=== PATIENT | female | born 1935 | race Caucasian/White ===

== ENCOUNTER 2017-10-26 19:10 | Emergency (ER) | payer MEDICARE, MEDICAID ==
[~2017-10-26] VITALS: Ht 160 cm; Wt 75.0 kg
[~2017-10-26 19:10] MED LIST: MECL25 PO; Z.0.NO CURRENT MEDS
[2017-10-26 19:12] VITALS: BP 208/94; PULSE 108; RESP 18; TEMP 97.7; O2SAT 94
[2017-10-26] MEDS ORDERED: SYNT25TA PO (19:27)
[2017-10-26] MEDS ORDERED: LIOT25 PO (19:27)
[2017-10-26] MEDS ORDERED: ONDANSETRON HCL 4 MG/2 ML VIAL IV PUSH ONE (20:15)
[2017-10-26] MEDS ORDERED: MORPHINE SULFATE 2 MG/ML INJ IV PUSH ONE (20:15)
--- NOTE | 2017-10-26 20:35 | PD ---
HPI Chief Complaint: Injury Time Seen by Provider: 19:30 Travel History International Travel<30 days: No Contact w/Intl Traveler<30days: No Traveled to known affect area: No History of Present Illness HPI 82-year-old female here for evaluation of right wrist pain after mechanical trip and fall in our parking lot. The patient was apparently visiting a relative and was leaving the hospital when she fell backwards. She states she stretched her right arm out backwards, FOOSH injury. She denies any other injuries. No head injury or LOC. No neck or back pain. Pain in her right wrist is moderate, constant, worse with movements. No paresthesias. She is right-hand dominant. PFSH Past Medical History Diminished Hearing: No Immunizations Current: Yes Thyroid Disease: Yes (hypo) Tetanus Vaccination: Unknown Influenza Vaccination: Yes Menopausal: Yes Past Surgical History Hysterectomy: Yes Social History Alcohol Use: No Tobacco Use: No (QUIT 2006) Substance Use: No Allergies-Medications (Allergen,Severity, Reaction): Coded Allergies: penicillin G (Unverified Allergy, Mild, HIVES, 10/26/17) Reported Meds & Prescriptions Reported Meds & Active Scripts Active Hydrocodone-Acetaminophen 5-325 mg Tab 1 Tab PO Q6H PRN Reported Cytomel (Liothyronine Sodium) 25 Mcg Tab 25 Mcg PO DAILY Synthroid (Levothyroxine Sodium) 25 Mcg Tab 25 Mcg PO DAILY Review of Systems Except as stated in HPI: all other systems reviewed are Neg Physical Exam Narrative GENERAL: Well-developed, well-nourished, comfortable, no apparent distress. SKIN: Focused skin assessment warm/dry. HEAD: Atraumatic. Normocephalic. EYES: Pupils equal and round. No scleral icterus. No injection or drainage. ENT: Mucous membranes pink and moist. NECK: Trachea midline. No JVD. CARDIOVASCULAR: Regular rate and rhythm. Bilateral distal radial pulses are brisk and equal. Normal capillary refill in all fingers and right hand. RESPIRATORY: No accessory muscle use. Clear to auscultation. Breath sounds equal bilaterally. GASTROINTESTINAL: Abdomen soft, non-tender, nondistended. Hepatic and splenic margins not palpable. MUSCULOSKELETAL: Obvious deformity to the right distal radius with moderate edema and diffuse tenderness with limited range of motion in the right wrist. All compartments in the right upper extremity are supple. The rest of her joints and extremities are without deformity, without tenderness, with normal range of motion. NEUROLOGICAL: Awake and alert. No obvious cranial nerve deficits. Motor grossly within normal limits. Normal speech. Normal sensation in the right hand. PSYCHIATRIC: Appropriate mood and affect; insight and judgment normal. Data Data Last Documented VS Vital Signs Date Time Temp Pulse Resp B/P (MAP) Pulse Ox O2 Delivery O2 Flow Rate FiO2 10/26/17 19:12 97.7 108 18 208/94 (132) 94 Orders Orders Wrist, Complete ([id number]) (10/26/17 ) Forearm (2vws) (10/26/17 ) Morphine Inj (Morphine Inj) (10/26/17 20:15) Ondansetron Inj (Zofran Inj) (10/26/17 20:15) Lidocaine 2% Inj (Xylocaine 2% Inj) (10/26/17 21:15) Wrist, Limited (Ap&Lat) (10/26/17 ) MDM Medical Decision Making Medical Screen Exam Complete: Yes Emergency Medical Condition: Yes Differential Diagnosis Right wrist fracture versus sprain versus contusion versus dislocation Narrative Course Right wrist x-ray shows Colles' fracture with minimal displacement with volar tilt as well as mildly comminuted. Closed reduction of the right wrist fracture was attempted by me under a hematoma block. Postreduction x-rays ordered. Case discussed with on-call orthopedist Dr. Thibodeaux who would like the patient to follow-up with him in his office this week. Patient was placed in a sling and advised to remove her shoulder from the sling to range her shoulder every 2-3 hours to prevent a frozen shoulder. Both patient and the patient's family were made aware of all findings and plan. Procedures Procedure Narrative Hematoma block of right wrist fracture: Posterior right forearm was prepped with ChloraPrep, and 8 cc of 2% lidocaine was injected into the hematoma developed by the distal radius fracture. Patient experienced almost immediate relief of pain. Tolerated well. No complications. Closed reduction of right distal radius fracture: After hematoma block was performed, closed reduction was attempted by me in a sugar tong splint was placed. Dose reduction x-rays ordered. Diagnosis Primary Impression: Closed fracture of right distal radius Qualified Codes: S52.531A - Colles' fracture of right radius, initial encounter for closed fracture Referrals: Willie Thibodeaux Jr., MD 3 days Additional Instructions: Follow-up with orthopedist Dr. Thibodeaux or an orthopedist of your choice this week. Return to the emergency department for worsening symptoms or any other concerns. Scripts Hydrocodone-Acetaminophen (Hydrocodone-Acetaminophen) 5-325 mg Tab 1 TAB PO Q6H Y for PAIN, #20 TAB 0 Refills Prov: Juan Hernandez MD 10/26/17 Disposition: 01 DISCHARGE HOME Condition: Stable Juan Hernandez MD Oct 26, 2017 20:35
[2017-10-26] MEDS ORDERED: LIDOCAINE HCL 2% 50 ML VIAL NERV BLOCK ONE (21:15)
[2017-10-26] MEDS ORDERED: HYDR-3516 PO (21:40)
--- NOTE | 2017-10-26 21:47 | RADRPT ---
EXAM DATE/TIME: 10/26/2017 20:24 [facility] COMPARISON: No previous studies available for comparison. INDICATIONS : Patient fell in parking lot landing on right wrist. Complains of right wrist pain. MEDICAL HISTORY : None. SURGICAL HISTORY : None. ENCOUNTER: Initial ACUITY: 1 day PAIN SCORE: 8/10 LOCATION: Right Wrist FINDINGS: The examination demonstrates an impacted, dorsally angulated fracture of the distal radius. There is mild comminution. The remainder of the osseous structures are intact. CONCLUSION: 1. Impacted, dorsally angulated fracture of the distal radius. Moncho Lawler MD on October 26, 2017 at 21:44 Board Certified Radiologist. This report was verified electronically.
--- NOTE | 2017-10-26 21:48 | RADRPT ---
EXAM DATE/TIME: 10/26/2017 20:28 [facility] COMPARISON: WRIST RIGHT COMPLETE ([id number]), October 26, 2017, 20:24. INDICATIONS : Patient complains of right arm pain status post fall. MEDICAL HISTORY : None. SURGICAL HISTORY : None. ENCOUNTER: Initial ACUITY: 1 day PAIN SCORE: 7/10 LOCATION: Right Forearm FINDINGS: There is impacted, comminuted, dorsally angulated fracture of the distal radius. The remainder the vi sualized osseous structures of the forearm are intact. CONCLUSION: 1. Distal radial fracture as above. Moncho Lawler MD on October 26, 2017 at 21:45 Board Certified Radiologist. This report was verified electronically.
--- NOTE | 2017-10-26 22:01 | RADRPT ---
EXAM DATE/TIME: 10/26/2017 21:28 [facility] COMPARISON: FOREARM RIGHT (2VWS), October 26, 2017, 20:28. INDICATIONS : Post reduction. MEDICAL HISTORY : None. SURGICAL HISTORY : None. ENCOUNTER: Initial ACUITY: 1 day PAIN SCORE: 3/10 LOCATION: Right upper extremity wrist FINDINGS: Postreduction examination in plaster demonstrates significant interval improvement in the alignment o f the patient's distal radial fracture. CONCLUSION: 1. Significant interval improvement in the alignment of the patient's distal radial fracture. Moncho Lawler MD on October 26, 2017 at 21:59 Board Certified Radiologist. This report was verified electronically.
== END 2017-10-26 22:23 | disposition home or self-care (01) ==
LOC: NEPD 19:10
DX: S52.531A Colles' fracture of right radius, initial encounter for closed fracture (principal); W01.0XXA Fall on same level from slipping, tripping and stumbling without subsequent striking against object, initial encounter; Y92.481 Parking lot as the place of occurrence of the external cause; E03.9 Hypothyroidism, unspecified; Z87.891 Personal history of nicotine dependence
CPT/HCPCS: 25605; 73090; 73100; 73110; 96374; 96375; 99284; J2270; J2405

== ENCOUNTER 2017-10-28 12:39 | Emergency (ER) | payer MEDICARE, MEDICAID ==
[~2017-10-28 12:39] MED LIST changes: +HYDR-3516 PO; +LIOT25 PO; -MECL25 PO; +SYNT25TA PO; -Z.0.NO CURRENT MEDS
[2017-10-28 13:23] VITALS: BP 148/67; PULSE 85; RESP 18; TEMP 97.8; O2SAT 94
--- NOTE | 2017-10-28 15:24 | PD ---
HPI Chief Complaint: Medical Clearance Time Seen by Provider: 15:07 Travel History International Travel<30 days: No Contact w/Intl Traveler<30days: No Traveled to known affect area: No History of Present Illness HPI 82-year-old female with PMH of right wrist fracture presents to the ED for evaluation. Patient fell in our parking lot on October 26 and was evaluated and treated by Dr. Hernandez. Patient states that her hand is swollen and she feels as if her splint is too tight. She endorses numbness in the fifth digit of the right hand. She denies limitations to range of motion or loss of strength of the fingers. She is been taking hydrocodone at home. She saw a primary care provider today but has not followed with the orthopedist yet [facility] Past Medical History Diminished Hearing: No Immunizations Current: Yes Thyroid Disease: Yes (hypo) Menopausal: Yes Past Surgical History Hysterectomy: Yes Social History Alcohol Use: No Tobacco Use: No (QUIT 2006) Substance Use: No Allergies-Medications (Allergen,Severity, Reaction): Coded Allergies: penicillin G (Unverified Allergy, Mild, HIVES, 10/26/17) Reported Meds & Prescriptions Reported Meds & Active Scripts Active Ibuprofen 600 Mg Tab 600 Mg PO Q8H PRN Hydrocodone-Acetaminophen 5-325 mg Tab 1 Tab PO Q6H PRN Reported Cytomel (Liothyronine Sodium) 25 Mcg Tab 25 Mcg PO DAILY Synthroid (Levothyroxine Sodium) 25 Mcg Tab 25 Mcg PO DAILY Review of Systems Except as stated in HPI: all other systems reviewed are Neg Physical Exam Narrative GENERAL: Well-nourished, well-developed white female in no acute distress. SKIN: Focused skin assessment warm/dry. HEAD: Normocephalic. EYES: No scleral icterus. No injection or drainage. NECK: Supple, trachea midline. No JVD or lymphadenopathy. CARDIOVASCULAR: Regular rate and rhythm without murmurs, gallops, or rubs. RESPIRATORY: Breath sounds equal bilaterally. No accessory muscle use. GASTROINTESTINAL: Abdomen soft, non-tender, nondistended. MUSCULOSKELETAL: No cyanosis, or edema. FOCUSED RIGHT UPPER EXTREMITY EXAM: 2+ radial pulse. There is edema of the fingers of the right hand. Patient is able to flex and extend the fingers. Sensation intact to light touch distally. BACK: Nontender without obvious deformity. No CVA tenderness. Data Data Last Documented VS Vital Signs Date Time Temp Pulse Resp B/P (MAP) Pulse Ox O2 Delivery O2 Flow Rate FiO2 10/28/17 13:23 97.8 85 18 148/67 (94) 94 Orders Orders Ed Discharge Order (10/28/17 15:25) MDM Medical Decision Making Medical Screen Exam Complete: Yes Emergency Medical Condition: Yes Differential Diagnosis wrist fracture versus neurovascular compromise versus splint recheck versus other Narrative Course 82-year-old female with PMH of right wrist fracture presents to the ED for evaluation. Patient fell in our parking lot on October 26 and was evaluated and treated by Dr. Hernandez. Patient states that her hand is swollen and she feels as if her splint is too tight. She endorses numbness in the fifth digit of the right hand. She denies limitations to range of motion or loss of strength of the fingers. She saw a primary care provider today but has not followed with the orthopedist yet. Vitals reviewed. On exam there is significant edema of the fingers but no neurovascular compromise. I educated the patient about the sugar tong splint and rewrap the Daniel wraps. The arm was placed in the appropriately adjusted arm sling. Patient requested and was provided a brief course of anti-inflammatories. She is instructed to continue to use RICE therapy, take ibuprofen for pain 1 through 5, follow with the orthopedist as planned. She is stable and discharged home. Diagnosis Primary Impression: Aftercare for cast or splint check or change Referrals: Orthopedist Additional Instructions: Follow instructions given at previous discharge. Take ibuprofen as prescribed, as needed for pain rated 1 through 5. Follow-up with the orthopedist as planned. Return to the ED for worsening symptoms or any urgent or emergent medical condition. Med/Other Pt SpecificInfo: Prescription(s) given Scripts Ibuprofen (Ibuprofen) 600 Mg Tab 600 MG PO Q8H Y for PAIN SCALE 1 TO 5, #15 TAB 0 Refills Prov: Claude Soliz MD 10/28/17 Disposition: 01 DISCHARGE HOME Condition: Stable Arabella Oliveira Oct 28, 2017 15:24
[2017-10-28] MEDS ORDERED: IBUP-232 PO (15:25)
== END 2017-10-28 15:38 | disposition home or self-care (01) ==
LOC: NED 12:39 → NEPK 15:38
DX: Z47.89 Encounter for other orthopedic aftercare (principal); R20.0 Anesthesia of skin; M79.89 Other specified soft tissue disorders; E03.9 Hypothyroidism, unspecified; Z79.899 Other long term (current) drug therapy; Z88.0 Allergy status to penicillin
CPT/HCPCS: 99283